=== PATIENT | male | born 1940 | race Caucasian/White ===

== ENCOUNTER → 2024-01-06 07:42 | Outpatient (REF) | payer MEDICARE, OTHER, SELFPAY ==
[2024-01-06 09:37] LABS: % Basophils 0.4 % (0-2); % Eosinophils 1.5 % (0-6); % Lymphocytes 47.4 % (20.5-51.1); % Monocytes 5.8 % (1.7-9.3); % Neutrophils 44.9 % (42.2-75.2); Absolute Eosinophils 0.1 10^3/uL (0-0.7); Absolute Lymphocytes 2.5 10^3/uL (1.2-3.4); Absolute Monocytes 0.3 10^3/uL (0.1-0.6); Absolute Neutrophils 2.3 10^3/uL (1.4-6.5); Hematocrit 33.9 % (39.0-52.0); Hemoglobin 11.2 g/dL (13.0-18.0); Mean Corpuscular Hgb 34.6 pg (27.0-31.0); Mean Corpuscular Volume 104.6 fL (80.0-94.0); Mean Platelet Volume 9.8 fL (7.4-10.4); Nucleated Red Blood Cells % 0 % (-); Platelet Count 278 10^3/uL (130-400); Red Blood Cell Count 3.24 10^6/uL (4.70-6.10); Red Cell Dist. Width 12.7 % (11.5-14.5); White Blood Cell Count 5.2 10^3/uL (4.8-10.8)
[2024-01-06 10:37] LABS: Glycohemoglobin (HgbA1c) 7.1 % (4.0-5.6)
[2024-01-06 10:39] LABS: Microalbumin, Random Urine 1.4 mg/dl (0.6-1.7); Microalbumin/creatinine Ratio 13.6 mg/g
[2024-01-06 10:41] LABS: ALT (SGPT) 24 U/L (0-50); AST (SGOT) 24 U/L (17-59); Albumin 4.4 g/dl (3.5-5.0); Alkaline Phosphatase 73 U/L (38-126); Blood Urea Nitrogen 15 mg/dl (9-20); Calcium 9.6 mg/dl (8.4-10.2); Carbon Dioxide 27 mmol/L (22-30); Chloride 104 mmol/L (98-107); Glucose 132 mg/dl (70-99); HDL Cholesterol 54 mg/dl; LDL Cholesterol, Calculated 66 mg/dl; Potassium 4.5 mmol/L (3.5-5.1); Sodium 143 mmol/L (135-145); Total Bilirubin 0.3 mg/dl (0.2-1.3); Total Cholesterol 147 mg/dl (50-199); Total Protein 6.8 g/dl (6.3-8.2); Triglyceride 135 mg/dl (10-149); Very Low Density Lipoprotein 27 mg/dl (0-30); eGFR > 60.00
[2024-01-06 12:03] LABS: PSA, Total - Screen 1.15 ng/ml (0.0-4.0); TSH 5.01 uIU/ml (0.47-4.68)
[2024-01-06 12:07] LABS: Ferritin 46.3 ng/ml (17.9-464.0)
== END ==
LOC: HWLAB 07:42
PROVIDERS: ATTENDING PHYSICIAN Family Medicine; OTHER PHYSICIAN Internal Medicine; OTHER PHYSICIAN Internal Medicine Endocrinology, Diabetes & Metabolism; REFERRING PHYSICIAN Internal Medicine
DX: E11.69 Type 2 diabetes mellitus with other specified complication (principal); E78.5 Hyperlipidemia, unspecified; D47.2 Monoclonal gammopathy; I42.2 Other hypertrophic cardiomyopathy; G25.0 Essential tremor; K21.9 Gastro-esophageal reflux disease without esophagitis; Z79.899 Other long term (current) drug therapy; E61.1 Iron deficiency; Z12.5 Encounter for screening for malignant neoplasm of prostate
CPT/HCPCS: 36415; 80053; 80061; 82043; 82570; 82728; 83036; 84443; 85025; G0103

== ENCOUNTER 2024-01-12 14:45 | Inpatient (IN) | payer MEDICARE, OTHER, SELFPAY ==
[2024-01-12 12:04] VITALS: BP 107/72
--- NOTE | 2024-01-12 12:15 | ED.GENMED ---
ED Provider Triage
<RESHMA Avina - Last Filed: 01/12/24 12:17>
-
Patient seen by provider in Triage?: Seen in Triage
Attestation: A medical screening examination has been initiated by a qualified medical provider. Based on the assessment performed at this time, it has been determined that an emergent medical condition may exist and the patient has been informed
that further medical evaluation and possible additional diagnostic testing may be needed.
HPI: 82-year-old male presents to the ER for evaluation of lightheadedness. Patient was in the shower when he started to feel very weak and lightheaded. HE checked his heart rate after and it was in the 80s. but his sugar was elevated to 200 .
Patient feels a little better now lightheadedness has resolved he does feel mild headache. He denies any chest pain shortness of breath. Denies any recent illness fever chills
GENERAL: Alert , in no apparent distress
EYE: No visual abnormalities.
NECK: Trachea midline
ENT: No visible abnormalities.
LUNGS: No acute respiratory distress
NEUROLOGICAL: Alert and oriented
SKIN: Skin intact. No visible changes.
MUSCULOSKELETAL: Moving extremities normally
PSYCH: Normal and appropriate interaction.
This is a medical evaluation conducted in person to initiate diagnostic evaluation and provide initial therapeutics. Please see further documentation by the treating clinician.
History of Present Illness
<RESHMA Avina - Last Filed: 01/12/24 12:17>
General
Chief Complaint: Fainting Sensation
Time Seen by Provider: 01/12/24 13:12
<Gabo Berry MD - Last Filed: 01/12/24 15:03>
History of Present Illness
History of Present Illness:
Patient presents to the emergency department with an episode of lightheadedness while he is in the shower this morning around 8:30 AM. He notes that he felt like fainting and felt a mild headache. He checked his heart rate on his watch and noted
to be elevated around 90. Patient notes that he has a history of hypertrophic nonobstructive cardiomyopathy. Denies any chest pain. Denies any leg swelling.
Past History
<RESHMA Avina - Last Filed: 01/12/24 12:17>
Past History
ED Past Medical History: Other (Nonobstructive hypertrophic CM, hyperlipidemia, GERD)
ED Past Surgical History: None
Social History
Tobacco: Non-smoker
Alcohol: None
Drug: None
Personal:
Living: with family
Phy Exam
<Gabo Berry MD - Last Filed: 01/12/24 15:03>
Physical Exam
Physical Exam:
GENERAL APPEARANCE: NAD, well developed/ well nourished
EYES lids/conjunctiva normal
EARS/NOSE/THROAT Mucous membranes moist, uvula midline without oral pharyngeal erythema, exudate or swelling
HEAD/NECK normocephalic atraumatic, neck is supple.
RESPIRATORY respiratory effort normal, speaks in full sentences, no accessory muscle use. Lungs clear to auscultation without rhonchi, wheezes, rales
CARDIAC irregular rhythm, rates 90s to 100s. No lower extremity edema
ABDOMINAL Soft, ND/NT.
MUSCLES/EXTREMITIES No abnormal range of motion, no swelling.
SKIN Warm, pink and dry. No rashes
NEUROLOGICAL Speech is clear and appropriate. Normal level of consciousness. 5/5 strength in all extremities.
PSYCH Normal mood and affect. Judgement/competence is appropriate
Course
<RESHMA Avina - Last Filed: 01/12/24 12:17>
Orders/Labs/Results
Orders:
Orders
01/12/24 11:57
Electrocardiogram (*1) Urgent
Reason for Study: Syncope
EKG- Treatment ONCE
01/12/24 12:21
Complete Blood Count/With Diff Urgent
Comprehensive Metabolic Panel Urgent
Magnesium Urgent
Comment: @PREVIOUSLY [id number]
TSH Reflex To Free T4 Urgent
Comment: ADD ON
Troponin I Urgent
01/12/24 13:35
Heparin 4,000 units IV NOW STA
Notify MD As Directed
Notify physician if: Call provider for further orders if PTT is greater than or equal to 200 per heparin
infusion protocol.
Nursing to Place Non Medication Order As Directed
Physician Order: PTT 6 hours after initial start of Heparin infusion
Above order entered?: Yes
01/12/24 13:41
CR Chest - 2 Views Urgent
Comment:
Reason For Exam: new afib
01/12/24 13:45
Heparin 63243 Units/250 ml 25,000 units in 250 ml IV PER PROTOCOL
Weight to be used for heparin protocol in kilograms (kg):: 69.1
Protocol:: Cardiac Tx/Acute Coronary
PTT Goal Range to be used:: PTT 73 to 111 seconds
Order type:: Initial
INITIAL Infusion Dose (UNITS/KG/hr) & then follow protocol:: 12 units/kg/hr
Infusion Dose in UNITS/hr & then follow protocol (UNITS/hr):: 850
INFUSION RATE in mL/hr & then follow protocol (mL/hr):: 8.5
PTT less than or equal to 64 seconds:: Increase rate by 200 units/hr (+ 2 mL/hr)
PTT 64.1 to 72.9 seconds:: Increase rate by 100 units/hr (+ 1 mL/hr)
PTT 73 to 111 seconds:: Target Range. No change in rate.
PTT 111.1 to 130.9 seconds:: Decrease rate by 100 units/hr (- 1 mL/hr)
PTT 131 to 199.9 seconds:: HOLD for 1 hr. Then decrease rate by 200 units/hr (- 2 mL/hr)
PTT greater than or equal to 200 seconds:: HOLD for 2 hrs & Notify Provider. Then decrease by 200 units/hr (-
2 mL/hr)
Lab follow-up:: Each change, PTT q6h until 2 consecutive are therapeutic. Then PTT
daily.
01/12/24 13:58
Add On- LAB Urgent
Tests Added?: tsh with free t4 reflex
01/12/24 14:00
Heparin 23731 Units/250 ml 25,000 units in 250 ml .ROUTE .STK-MED
01/12/24 14:05
PTT Urgent
Comment: Obtain baseline before beginning heparin infusion if not already collected
Prothrombin Time Urgent
01/12/24 14:15
CARDIOLOGY CONSULT Routine
Consulting Provider: Gio Conte
Was physician already notified: Yes
Reason for consult: new onset afib
01/12/24 14:17
Old Records Request [Obtain Records] As Directed
Dates of Information to be Released: [id number]
Type of Information Requested: Entire Record
If Other, list type of info requested: 2d echo
Obtain Records from: dr ivis [facility] [phone] include
01/12/24 14:18
Admit/Transfer Patient As Directed
Co-Sign Provider:
Level of Care: Inpatient admission
Assign to:: Telemetry
Physician / Group: elizabeth melendez
Diagnosis: new onset afib
Reason for Telemetry: Arrhythmia
Date to Stop Telemetry: 01/15/24
Time to Stop Telemetry: 11:00
Reason for Hospitalization: new onset afib
Expected length of stay greater than two midnights?: Yes
ELOS- Estimated Length of Stay in days: 3
I certify the patient meets the requirements for IP care: Yes
Code Status As Directed
Resuscitation Status: Full Code
01/12/24 14:20
PRN Pain Medication Management As Directed
May give lesser potent ordered pain med per pt: Yes
preference::
Protocol:: Medication orders for pain may be administered in a
manner that supports deferring to patient preference
when the pt is:
- Requesting an ordered lesser potent pain medication.
Least to most potent pain medications are defined
as: acetaminophen < NSAID < tramadol < opioids
(morphine, oxycodone, hydromorphone).
- Requesting a lesser dose of the same medication IF
ORDERED.
- Requesting a less intrusive route of administration
if both routes are prescribed by the provider (PO <
IV).
01/12/24 14:21
Acetaminophen [Tylenol] 650 mg PO NOW STA
01/12/24 20:10
PTT Urgent
01/15/24 11:00
DC Protocol for Telemetry ONCE
Abnormal Lab Results
01/12/24
12:21
RBC 3.54 L 10^6/uL
(4.70-6.10)
Hgb 12.5 L g/dL
(13.0-18.0)
Hct 36.7 L %
(39.0-52.0)
MCV 103.7 H fL
(80.0-94.0)
MCH 35.3 H pg
(27.0-31.0)
BUN 21 H mg/dl
(9-20)
Glucose 154 H mg/dl
(70-99)
01/12/24 12:21
01/12/24 12:21
Vital Signs
Initial and Last Documented VS:
Initial Vital Signs
Temp Pulse Resp BP Pulse Ox
98.9 F 84 20 107/72 97
01/12/24 12:04 01/12/24 12:04 01/12/24 12:04 01/12/24 12:04 01/12/24 12:04
Last Documented Vital Signs
Temp Pulse Resp BP Pulse Ox
98.9 F 108 15 132/103 99
01/12/24 12:04 01/12/24 14:30 01/12/24 14:30 01/12/24 14:24 01/12/24 14:13
<Gabo Berry MD - Last Filed: 01/12/24 15:03>
Orders/Labs/Results
Orders:
Orders
01/12/24 11:57
Electrocardiogram (*1) Urgent
Reason for Study: Syncope
EKG- Treatment ONCE
01/12/24 12:21
Complete Blood Count/With Diff Urgent
Comprehensive Metabolic Panel Urgent
Magnesium Urgent
Comment: @PREVIOUSLY [id number]
TSH Reflex To Free T4 Urgent
Comment: ADD ON
Troponin I Urgent
01/12/24 13:35
Heparin 4,000 units IV NOW STA
Notify MD As Directed
Notify physician if: Call provider for further orders if PTT is greater than or equal to 200 per heparin
infusion protocol.
Nursing to Place Non Medication Order As Directed
Physician Order: PTT 6 hours after initial start of Heparin infusion
Above order entered?: Yes
01/12/24 13:41
CR Chest - 2 Views Urgent
Comment:
Reason For Exam: new afib
01/12/24 13:45
Heparin 99713 Units/250 ml 25,000 units in 250 ml IV PER PROTOCOL
Weight to be used for heparin protocol in kilograms (kg):: 69.1
Protocol:: Cardiac Tx/Acute Coronary
PTT Goal Range to be used:: PTT 73 to 111 seconds
Order type:: Initial
INITIAL Infusion Dose (UNITS/KG/hr) & then follow protocol:: 12 units/kg/hr
Infusion Dose in UNITS/hr & then follow protocol (UNITS/hr):: 850
INFUSION RATE in mL/hr & then follow protocol (mL/hr):: 8.5
PTT less than or equal to 64 seconds:: Increase rate by 200 units/hr (+ 2 mL/hr)
PTT 64.1 to 72.9 seconds:: Increase rate by 100 units/hr (+ 1 mL/hr)
PTT 73 to 111 seconds:: Target Range. No change in rate.
PTT 111.1 to 130.9 seconds:: Decrease rate by 100 units/hr (- 1 mL/hr)
PTT 131 to 199.9 seconds:: HOLD for 1 hr. Then decrease rate by 200 units/hr (- 2 mL/hr)
PTT greater than or equal to 200 seconds:: HOLD for 2 hrs & Notify Provider. Then decrease by 200 units/hr (-
2 mL/hr)
Lab follow-up:: Each change, PTT q6h until 2 consecutive are therapeutic. Then PTT
daily.
01/12/24 13:58
Add On- LAB Urgent
Tests Added?: tsh with free t4 reflex
01/12/24 14:00
Heparin 28232 Units/250 ml 25,000 units in 250 ml .ROUTE .STK-MED
01/12/24 14:05
PTT Urgent
Comment: Obtain baseline before beginning heparin infusion if not already collected
Prothrombin Time Urgent
01/12/24 14:15
CARDIOLOGY CONSULT Routine
Consulting Provider: Gio Conte
Was physician already notified: Yes
Reason for consult: new onset afib
01/12/24 14:17
Old Records Request [Obtain Records] As Directed
Dates of Information to be Released: [id number]
Type of Information Requested: Entire Record
If Other, list type of info requested: 2d echo
Obtain Records from: dr [facility]is [facility] [phone] include
01/12/24 14:18
Admit/Transfer Patient As Directed
Co-Sign Provider:
Level of Care: Inpatient admission
Assign to:: Telemetry
Physician / Group: elizabeth melendez
Diagnosis: new onset afib
Reason for Telemetry: Arrhythmia
Date to Stop Telemetry: 01/15/24
Time to Stop Telemetry: 11:00
Reason for Hospitalization: new onset afib
Expected length of stay greater than two midnights?: Yes
ELOS- Estimated Length of Stay in days: 3
I certify the patient meets the requirements for IP care: Yes
Code Status As Directed
Resuscitation Status: Full Code
01/12/24 14:20
PRN Pain Medication Management As Directed
May give lesser potent ordered pain med per pt: Yes
preference::
Protocol:: Medication orders for pain may be administered in a
manner that supports deferring to patient preference
when the pt is:
- Requesting an ordered lesser potent pain medication.
Least to most potent pain medications are defined
as: acetaminophen < NSAID < tramadol < opioids
(morphine, oxycodone, hydromorphone).
- Requesting a lesser dose of the same medication IF
ORDERED.
- Requesting a less intrusive route of administration
if both routes are prescribed by the provider (PO <
IV).
01/12/24 14:21
Acetaminophen [Tylenol] 650 mg PO NOW STA
01/12/24 20:10
PTT Urgent
01/15/24 11:00
DC Protocol for Telemetry ONCE
Abnormal Lab Results
01/12/24
12:21
RBC 3.54 L 10^6/uL
(4.70-6.10)
Hgb 12.5 L g/dL
(13.0-18.0)
Hct 36.7 L %
(39.0-52.0)
MCV 103.7 H fL
(80.0-94.0)
MCH 35.3 H pg
(27.0-31.0)
BUN 21 H mg/dl
(9-20)
Glucose 154 H mg/dl
(70-99)
01/12/24 12:21
01/12/24 12:21
Vital Signs
Initial and Last Documented VS:
Initial Vital Signs
Temp Pulse Resp BP Pulse Ox
98.9 F 84 20 107/72 97
01/12/24 12:04 01/12/24 12:04 01/12/24 12:04 01/12/24 12:04 01/12/24 12:04
Last Documented Vital Signs
Temp Pulse Resp BP Pulse Ox
98.9 F 108 15 132/103 99
01/12/24 12:04 01/12/24 14:30 01/12/24 14:30 01/12/24 14:24 01/12/24 14:13
<Gabo Berry MD - Last Filed: 01/12/24 15:03>
*Critical Care Note
Total Time (30-74mins, 75-104mins- exclusive of procedures): Not Applicable
ED Attending Note
<RESHMA Avina - Last Filed: 01/12/24 12:17>
-
Portions of this chart may have been created with voice recognition software.� Occasional wrong word or��sound alike� substitutions may have occurred due to the inherent limitations of voice recognition software.
<Gabo Berry MD - Last Filed: 01/12/24 15:03>
ED Attending Note
ED Attending Note:
Patient presents the emergency department with near syncope found to be in new onset atrial fibrillation. Rate is controlled. Given his history of cardiomyopathy as well as age, will admit for echo and monitoring and cardiology consult
Discharge Plan
Departure
Patient Disposition: Admit
Date of Disposition: 01/12/24
Time of Disposition: 13:45
Admit to: Telemetry
Presentation/result/management discussed w/ accepting MD/DO: Hospitalist
Discharge Problem:
Atrial fibrillation/flutter, Near syncope
Interventions
Interventions:
*Risk Screen - Suicide Last Done: 01/12/24 12:10
*Neglect/Abuse Screening Last Done: 01/12/24 12:10
ED- Fall Risk Assessment Last Done: 01/12/24 13:13
*ED COVID-19 Vaccine History Last Done: 01/12/24 12:58
ED- Cardiac Assessment Last Done: 01/12/24 13:13
ED- Neurological Assessment Last Done: 01/12/24 13:13
[2024-01-12 12:32] LABS: % Basophils 0.3 % (0-2); % Eosinophils 0.8 % (0-6); % Immature Granulocytes 0.3 % (0-0.5); % Lymphocytes 25.5 % (20.5-51.1); % Neutrophils 67.1 % (42.2-75.2); Absolute Eosinophils 0.1 10^3/uL (0-0.7); Absolute Lymphocytes 1.5 10^3/uL (1.2-3.4); Absolute Monocytes 0.4 10^3/uL (0.1-0.6); Hematocrit 36.7 % (39.0-52.0); Hemoglobin 12.5 g/dL (13.0-18.0); Mean Corp Hgb Conc. 34.1 g/dL (33.0-37.0); Mean Corpuscular Hgb 35.3 pg (27.0-31.0); Mean Corpuscular Volume 103.7 fL (80.0-94.0); Mean Platelet Volume 9.9 fL (7.4-10.4); Nucleated Red Blood Cells % 0 % (-); Platelet Count 309 10^3/uL (130-400); Red Blood Cell Count 3.54 10^6/uL (4.70-6.10); Red Cell Dist. Width 12.5 % (11.5-14.5)
[2024-01-12 12:52] LABS: Troponin I < 0.012 ng/ml
[2024-01-12 12:53] LABS: ALT (SGPT) 27 U/L (0-50); AST (SGOT) 27 U/L (17-59); Albumin 4.8 g/dl (3.5-5.0); Alkaline Phosphatase 76 U/L (38-126); Blood Urea Nitrogen 21 mg/dl (9-20); Calcium 9.6 mg/dl (8.4-10.2); Carbon Dioxide 26 mmol/L (22-30); Chloride 102 mmol/L (98-107); Glucose 154 mg/dl (70-99); Potassium 5.1 mmol/L (3.5-5.1); Sodium 142 mmol/L (135-145); Total Bilirubin 0.5 mg/dl (0.2-1.3); Total Protein 7.6 g/dl (6.3-8.2); eGFR > 60.00
[2024-01-12 13:08] VITALS: BP 139/77
--- NOTE | 2024-01-12 13:58 | HPS.HSE ---
Family Physician
-
Family Physician: Dony Meyers
Chief Complaint
-
Lightheadedness
History of Present Illness
83-year-old male complaining of lightheadedness with entire body feeling weak while he was in the shower. He reports checking his heart rate states it was in the 80s he also checked his blood sugar which was elevated to 200. He reports a mild
headache across the frontal sinus area. He denies fever, chills, sore throat, chest pain, palpitations, shortness with, cough, abdominal pain, nausea, vomiting, diarrhea, urinary symptoms. In the ER he was found to be in new onset A-fib with a
controlled rate 76-102. He reports he had lab work last week with an A1c of 7.1. He does have past medical history of hypertrophic nonobstructive cardiomyopathy, HLD, GERD, iron deficiency, pancreatic cysts, DM 2-diet controlled
Medical History
Past Medical History
Past Medical History: Reports Other
Additional Past Medical History:
hypertrophic nonobstructive cardiomyopathy
HLD
GERD
iron deficiency
pancreatic cysts
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
DM 2-diet controlled
Past Surgical History: Reports Other
Additional Past Surgical History:
Dental surgery
Hernia repair
Cardiac cath
Multiple endoscopic
Left wrist surgery
Tonsillectomy
Whipple surgery due to stone in duct 2018
Social History
Tobacco: Non-smoker
Alcohol: None
Drug: None
Personal:
Living: With Family ( Alissa)
Employment: Retired
Family History
Family History: Other (Father pancreatic CA, mother complications diverticulitis/sepsis)
Allergies / Home Medications
Allergies reflects when Allergies were last updated in [employer].
Home Medications with original date entered in [facility]
Allergy/Medication List:
Allergies
Allergy/AdvReac Type Severity Reaction Status Date / Time
No Known Allergies Allergy Verified 01/12/24 12:14
Home Medications
Lactobac no.2-Bifidobac no.1-S. thermo 112.5 billion cell capsule (Visbiome) 1 cap PO DAILY 01/12/24
diphenhydramine 25 mg-acetaminophen 500 mg tablet (Tylenol PM Extra Strength) 1 tab PO HSPRN PRN sleep 01/12/24
folic acid 1 mg tablet 1 mg PO DAILY 01/12/24
metoprolol tartrate 25 mg tablet 25 mg PO BID 01/12/24
omeprazole 40 mg capsule,delayed release 40 mg PO DAILY 01/12/24
simvastatin 10 mg tablet (Zocor) 10 mg PO HS 01/12/24
Review of Systems
-
History Source: Patient and Family ( Alissa at bedside)
A 12 point ROS was completed and negative except as noted: Yes
Constitutional: Denies Fever, Fatigue or Chills
EENT: Denies Sore Throat, Mouth Pain or Runny Nose
Respiratory: Denies Cough or Trouble Breathing
Cardiac: Denies Chest Pain, Diaphoresis, Palpitations or Syncope
Abdomen/GI: Denies Abdominal Pain, Nausea, Vomiting, Diarrhea, Constipated, Bloody Stools or Black Stools
: Denies Dysuria, Frequency, Flank Pain, Incontinence, Difficulty Voiding or Urgency
Musculoskeletal: Denies Joint Pain, Joint Swelling or Edema
Skin: Denies Itching or Rash
Neurological: Reports Dizzy and Headache (Frontal)
Endocrine: Reports No Symptoms
Hematologic/Lymphatic: Reports No Symptoms
Psych: Reports Calm
Physical Exam
Vital Signs
Vital Signs
Temp Pulse Resp BP Pulse Ox
98.9 F 102 19 139/77 100
01/12/24 12:04 01/12/24 13:09 01/12/24 13:09 01/12/24 13:08 01/12/24 13:09
Physical Exam
General: Comfortable and Conversant; No Fever or Chills
HEENT: NormoCephalic, Anicteric, Moist mucous membranes, PERRLA, [place] Conjunctivae and No Ptosis
Respiratory: Clear; No Wheezes, Rales or Rhonchi
Cardiac: S1/S2 and Irregular Rhythm (A-fib HR 90 bpm on monitor); No Murmur, Rub, Gallop or Peripheral Edema
Breast: Deferred by me
GI: Soft, Non Tender, Non Distended, Normal Bowel Sounds and No Hepatosplenomegaly
Rectal: Deferred by Provider
Genito-urinary: Deferred by me
Musculoskeletal: No Clubbing, No Cyanosis and No Edema
Skin: Warm, Dry and Rash
Neuro: AO x 3, No Motor Deficits, Nonfocal/grossly intact and No Sensory Deficits; No Slurred Speech, Facial Droop or Tremors
Psych: Calm
Laboratory Results
-
01/12/24 12:21
01/12/24 12:21
Laboratory Results
Total Bilirubin 0.5 mg/dl (0.2-1.3) 01/12/24 12:21
AST 27 U/L (17-59) 01/12/24 12:21
ALT 27 U/L (0-50) 01/12/24 12:21
Alkaline Phosphatase 76 U/L (38-126) 01/12/24 12:21
Troponin I < 0.012 ng/ml 01/12/24 12:21
Impression/Plan
-
Impression/plan:
Admit to telemetry
#New onset atrial fibrillation
-Rate controlled 76�102 bpm
-IV heparin drip started
-Consult CBC cardiology
-Check TSH with free T4 reflex
-2D echo
-Continue metoprolol tartrate 25 mg twice daily
-Check CXR
#Hx hypertrophic nonobstructive cardiomyopathy
Patient follows Dr. Henry Sanders at [place]
-Request old records from above physician [phone]
#DM2�diet controlled
Patient reports blood work last week 7.1%
# HLD
Check lipid profile
-Continue Zocor 10 mg at bedtime
#GERD
-Continue omeprazole 40 mg daily
#Iron deficiency
-Hgb 12.5
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
pancreatic cysts
DVT prophylaxis
IV heparin drip
Full code per patient with Alissa at bedside
[2024-01-12] MEDS: HEPARIN 4000 UNITS IV (14:06)
[2024-01-12] MEDS: HEPARIN 25000 UNITS/250 ML IV (14:09)
--- NOTE | 2024-01-12 14:16 | W.PN.UPDATE ---
Addendum entered and electronically signed by Cathryn Tomlin MD 01/12/24 17:11:
Eliquis started. NPO past midnight for OSWALD Cardioversion tomorrow.
Addendum entered and electronically signed by Cathryn Tomlin MD 01/12/24 14:23:
History of Type 2 Diabetes, recent a1c of 7.1. ISS.
Original Note:
Update Note
Progress Note Update
This is an addendum to the H&P written by Thu Perez on 01/12/2024.� Patient seen and examined independently with ORDER PICKER/ASSEMBLER.
83-year-old male past medical history of hypertrophic cardiomyopathy, hyperlipidemia, GERD presenting for weakness and lightheadedness while in the shower today.
Patient arrives with new onset atrial fibrillation with heart rate in the 80s.� Hemodynamically stable.� Labs normal.� Troponin negative.� Heparin drip started.� Check TSH, check echocardiogram.� Cardiology consulted.
[2024-01-12 14:24] VITALS: BP 132/103
[2024-01-12 14:29] LABS: INR 1.04; PT 13.6 Sec (11.4-14.6)
[2024-01-12 14:30] LABS: APTT 26.4 Sec (23.4-35.0)
[2024-01-12] MEDS: TYLENOL 650 MG PO (14:33)
[2024-01-12 14:41] LABS: Magnesium 2.1 mg/dl (1.6-2.3)
--- NOTE | 2024-01-12 14:51 | EDRN ---
Authorization to obtain MEd RECORDS release obtained. alumnae secretary contacting Dr Snaders office for ordered records
[2024-01-12 15:13] LABS: TSH Reflex To Free T4 2.71 uIU/ml (0.47-4.68)
--- NOTE | 2024-01-12 16:06 | CON.CAR ---
Addendum entered and electronically signed by Gio Conte MD 01/12/24 17:12:
I saw and examined the patient.
The LOGGING CONTRACTOR's note was reviewed and I agree with the note.
Comment: We reviewed all aspects of AFib: risk factor modification, stroke risk reduction, symptom control via rate vs rhythm control. For HCM we only use AMIODARONE or ablation for rhythm control. Will start with single cardioversion guided by OSWALD
and adding Eliquis and AFib risk factor modification. Reviewed risks/benefits of anticoagulation and signs/symptoms of GI bleed and risk of ICH. Given his initial symptoms (dizzy w/o syncope) I suggested to him he have a 30 day monitor like
[employer] Loop Event Recorder with auto trigger of MCOT. He will follow with his teletypesetter in [place] (Henry Sanders MD).
Original Note:
Consultation
Consultation Request
Date/Time Consultation Requested: 01/12/24 1415
Date/Time Consultation Performed: 01/12/24 1530
Requesting Provider: Thu Perez NP
Performing Provider: Twila JUSTICE for Dr. Conte
Reason for Consultation: AFIB
Medical History
-
Chief Complaint: Light-headedness
History of Present Illness:
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
he was in the shower today around 830 AM and felt light-headed and weak. His helped him to the bed. He noted his HR was in 90 range, where it is usually in 50's-60's. He called his PCP, who recommended ER evaluation. In ER, he is seen to be in
AFIB with fairly controlled rates and he is feeling okay. No CP or palpitations. He is place on a heparin drip.
Past Medical History
Past Medical History: Hypercholesterolemia, NIDDM and Other (as above)
Social History
Tobacco: Non-Smoker
Alcohol: None
Personal:
Living: With Family
Family History
Family History: CAD (mom had stents, not young)
Allergies / Home Medications
Allergy/AdvReac Type Severity Reaction Status Date / Time
No Known Allergies Allergy Verified 01/12/24 12:14
�Medication �Instructions �Recorded �Confirmed �Type
Lactobac no.2-Bifidobac no.1-S. 1 cap PO DAILY probiotic 01/12/24 01/12/24 History
thermo 112.5 billion cell capsule
(Visbiome)
diphenhydramine 25 1 tab PO HSPRN PRN sleep 01/12/24 01/12/24 History
mg-acetaminophen 500 mg tablet
(Tylenol PM Extra Strength)
folic acid 1 mg tablet 1 mg PO DAILY Supplement 01/12/24 01/12/24 History
metoprolol tartrate 25 mg tablet 25 mg PO BID Blood Pressure 01/12/24 01/12/24 History
omeprazole 40 mg capsule,delayed 40 mg PO DAILY Gastrointestinal 01/12/24 01/12/24 History
release Issue
simvastatin 10 mg tablet (Zocor) 10 mg PO HS High Cholesterol 01/12/24 01/12/24 History
Review of Systems
-
History Source: Patient
All other systems: Negative unless noted
Neurological: Dizzy (light-headed)
Physical Exam
Vital Signs
Temp Pulse Resp BP Pulse Ox
98.9 F 108 15 132/103 99
01/12/24 12:04 01/12/24 14:30 01/12/24 14:30 01/12/24 14:24 01/12/24 14:13
Lab Results
01/12/24 12:21
01/12/24 12:21
Troponin I < 0.012 ng/ml 01/12/24 12:21
Physical Exam
General: Well Developed, Well Nourished and No Apparent Distress
HEENT: Normocephalic and Anicteric
Respiratory: Clear and Non Labored Respirations
Cardiac: Irregular Rhythm
Musculoskeletal: No Edema
Skin: Warm and Dry
Neuro: AO x 3
Psych: Calm
Impression / Plan
-
Atrial fibrillation, new diagnosis- type and onset are unknown:
-rate is fairly well-controlled on metoprolol 25 mg PO BID - follow telemetry
-[id number] score is 3 for HTN and age- heparin drip started- continue for now- this requires intensive monitoring, will adjust to Kivo- CM to cuevas
-OSWALD/CV in AM
-TSH WNL
Apical variant cardiomyopathy:
-obtain TTE after cardioversion
DM2:
-lifestyle management, not on meds
Dyslipidemia:
-on statin
Data Reviewed
-
EKG: Tracing Personally Visualized and interpreted (AFIB, ST and T wave abnormality)
Radiology: Report Reviewed by me (No active cardiopulmonary disease.)
Medical Tests (Nuc Med, Echo etc): Other (echo ordered)
Labs: Labs Reviewed by me
[2024-01-12 16:15] VITALS: BP 126/87; BMI 23.7
[2024-01-12 16:24] LABS: Glucose - Point of Care 108 mg/dl (70-99)
[2024-01-12 17:25] VITALS: BMI 23.7
--- NOTE | 2024-01-12 17:26 | PTCARENOTE ---
Received patient from ED via stretcher. AAOx3, ambulated to bed without assistance. Assessed and oriented to room. at bedside. Call mccauley in close reach.
[2024-01-12 19:45] VITALS: BP 130/78
[2024-01-12] MEDS: LOPRESSOR 25 MG PO (20:29)
[2024-01-12] MEDS: ELIQUIS 5 MG PO (20:29)
[2024-01-12] MEDS: LIPITOR 10 MG PO (21:37)
[2024-01-12 23:29] VITALS: BP 105/72
[2024-01-13] VITALS (7 sets, daily range): BP systolic 91–113; BP diastolic 49–62; PULSE 69; O2SAT 97
[2024-01-13 05:42] LABS: Glucose - Point of Care 122 mg/dl (70-99)
[2024-01-13] MEDS: NOVOLOG FLEXPEN-LOW RESISTANCE SC (05:44)
[2024-01-13 08:08] LABS: % Basophils 0.3 % (0-2); % Eosinophils 1.1 % (0-6); % Immature Granulocytes 0.3 % (0-0.5); % Lymphocytes 40.8 % (20.5-51.1); % Monocytes 6.4 % (1.7-9.3); % Neutrophils 51.1 % (42.2-75.2); Absolute Eosinophils 0.1 10^3/uL (0-0.7); Absolute Lymphocytes 2.5 10^3/uL (1.2-3.4); Absolute Monocytes 0.4 10^3/uL (0.1-0.6); Absolute Neutrophils 3.1 10^3/uL (1.4-6.5); Hematocrit 36.5 % (39.0-52.0); Hemoglobin 12.2 g/dL (13.0-18.0); Mean Corp Hgb Conc. 33.4 g/dL (33.0-37.0); Mean Corpuscular Hgb 34.7 pg (27.0-31.0); Mean Corpuscular Volume 103.7 fL (80.0-94.0); Mean Platelet Volume 10.2 fL (7.4-10.4); Nucleated Red Blood Cells % 0 % (-); Platelet Count 296 10^3/uL (130-400); Red Blood Cell Count 3.52 10^6/uL (4.70-6.10); Red Cell Dist. Width 12.5 % (11.5-14.5); White Blood Cell Count 6.1 10^3/uL (4.8-10.8)
[2024-01-13] MEDS: LOPRESSOR 25 MG PO (08:10)
[2024-01-13] MEDS: ELIQUIS 5 MG PO (08:11)
[2024-01-13] MEDS: VISBIOME 1 CAP PO (08:11)
[2024-01-13] MEDS: FLUSH (NSS) 1 FLUSH IV (08:11)
[2024-01-13] MEDS: PROTONIX 40 MG PO (08:11)
[2024-01-13] MEDS: FOLVITE 1 MG PO (08:11)
[2024-01-13 08:47] LABS: ALT (SGPT) 24 U/L (0-50); AST (SGOT) 24 U/L (17-59); Albumin 4.1 g/dl (3.5-5.0); Alkaline Phosphatase 69 U/L (38-126); Blood Urea Nitrogen 21 mg/dl (9-20); Calcium 9.6 mg/dl (8.4-10.2); Carbon Dioxide 24 mmol/L (22-30); Chloride 106 mmol/L (98-107); Estimated Creatinine Clearance 50 ml/min; Glucose 143 mg/dl (70-99); HDL Cholesterol 51 mg/dl; LDL Cholesterol, Calculated 69 mg/dl; Potassium 4.7 mmol/L (3.5-5.1); Sodium 142 mmol/L (135-145); Total Bilirubin 0.6 mg/dl (0.2-1.3); Total Cholesterol 146 mg/dl (50-199); Total Protein 6.6 g/dl (6.3-8.2); Triglyceride 132 mg/dl (10-149); Very Low Density Lipoprotein 26 mg/dl (0-30); eGFR > 60.00
--- NOTE | 2024-01-13 09:40 | W.PN.CD ---
Today's Communication / Plan
-
ok for discharge home today to follow up with typical cardiology
continue eliquis and bb
Impression / Plan
-
Atrial fibrillation, new diagnosis- type and onset are unknown:
-rate is fairly well-controlled on metoprolol 25 mg PO BID - follow telemetry
-[id number] score is 3 for HTN and age
-Succesful ISMAEL/DCCV
-he can afford Eliquis, so will continue on d/c
-TSH WNL
Apical variant cardiomyopathy:
-seen on ismael
-followed by Dr Sanders
-given presyncope with would pursue MCOT with primary cardiology
DM2:
-lifestyle management, not on meds
Dyslipidemia:
-on statin
Subjective;
he is without complaint
Physical Exam
Vital Signs/Labs
Vital Signs
Temp Pulse Resp BP Pulse Ox
97.9 F 94 16 110/61 100
01/13/24 07:45 01/13/24 08:10 01/13/24 07:45 01/13/24 08:10 01/13/24 07:45
01/12/24 01/13/24 01/14/24
06:59 06:59 06:59
Actual Weight 64.495 kg
01/13/24 07:44
01/13/24 07:44
PT 13.6 Sec (11.4-14.6) 01/12/24 14:05
INR 1.04 01/12/24 14:05
APTT Cancelled 01/12/24 20:10
Magnesium Cancelled 01/12/24 14:05
Triglycerides 132 mg/dl (10-149) 01/13/24 07:44
LDL Cholesterol, Calc 69 mg/dl 01/13/24 07:44
VLDL Cholesterol, Calc 26 mg/dl (0-30) 01/13/24 07:44
HDL Cholesterol 51 mg/dl 01/13/24 07:44
LAB Results
01/12/24
12:21
Troponin I < 0.012
Physical Exam
Constitutional: No acute distress
Cardiovascular: Rhythm & rate is regular, Pedal edema is absent, JVD pressure is normal, Systolic murmur absent and Diastolic murmur absent
Respiratory: Respiratory effort normal, Lungs clear to auscul., Wheeze Absent, Crackles Absent and Rhonchi Absent
Neuro/Psych: AO x 3
Data Reviewed
-
Date of Service: January 13, 2024
Medical Decision Making: Review of Case with other Provider (Dr Cochran HCM variant seen on ismael, single shock to restore nsr; Dr Ramos ok for discharge)
--- NOTE | 2024-01-13 09:41 | W.PN.HOSP.TC ---
Addendum entered and electronically signed by Brandt Ramos MD 01/13/24 13:09:
I saw and evaluated the patient. I reviewed the resident�s note and agree with findings and plan as documented in the resident�s note.
Currently without acute complaints.
Gen: NAD, AAOx3.
Eyes: EOMI, PERRLA, no scleral icterus.
Neck: supple.
CV: RRR, +S1/S2, no m/r/g.
Resp: CTAB, no rales, wheezes, or rhonchi.
Abd: +BS, soft, NT, ND
Skin: No rashes.
Neuro: CN 2-12 intact, non-focal.
Psych: Normal mood and affect.
Symptomatic atrial fibrillation with rapid ventricular response:
-Status post OSWALD cardioversion to sinus rhythm today
-Eliquis started
-Case discussed with Dr. Nava and the patient is medically cleared for discharge at this time.
updated at bedside
Total time spent on d/c = 31 min. This included today's physical exam, progress note, review of laboratory and diagnostic data, preparation of discharge documents and prescriptions, and discussions about the pt's hospital course and discharge plan
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
Original Note:
Today's Communication/Plan
-
OSWALD cardioversion
Plan discharge
Assessment / Plan
Assessment / Plan
IMPRESSION
Patient is an 83 year old male with past medical history of apical variant hypertrophic cardiomyopathy,dyslipidemia,diet controlled type2 diabetes mellitus,history of whipple procedure for pancreatic duct stone who presented with new onset atrial
fibrillation following an episode of lightheadedness.Heart rate in 80-90 which usually for him is 50-60's.Admitted for SOWALD Cardioversion and monitoring.
ASSESSMENT AND PLAN
NEW ONSET ATRIAL FIBRILLATION
Patient had an episode of lightheadedness on
At that time he had a heart rate of 80 which is higher for him compared to baseline heart rate of 50-60
EKG done in ED Showed:ATRIAL FIBRILLATION,ST and T WAVE ABNORMALITY, CONSIDER ANTEROLATERAL ISCHEMIA
TSH---within normal limits
TROP I___within normal limits
[id number] score 3---candidate for anticoagulation
Cardiology consult appreciated:2D echo-Continue metoprolol tartrate 25 mg twice daily-Check CXR,IV heparin drip started
ECHOCARDIOGRAPHY
TELEMETRY
PT evaluation
OTHER PROBLEMS
#Hx hypertrophic nonobstructive cardiomyopathy
#DM2�diet controlled. MoQ3r--4.1 done last week
# HLD-continue home dose ofstatin
#GERD-Continue omeprazole 40 mg daily
#Iron deficiency-Hgb 12.5
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
pancreatic cysts
CXR FINDINGS:
Frontal and lateral radiographs of the chest were obtained.
The cardiac silhouette and pulmonary vasculature are radiographically within normal limits.
There are no acute mediastinal abnormalities.
There are no acute pleural or parenchymal abnormalities
OSWALD CARDIOVERSION
A OSWALD (reported separately) was performed prior to the cardioversion. No left atrial or left atrial appendage thrombus was seen. After the OSWALD probe was removed, a 200 joule biphasic synchronized shock was delivered to the patient under MAC
anesthesia. Sinus rhythm was successfully restored. The patient recovered uneventfully from MAC anesthesia. There were no immediate post-procedure complications. The patient left the lab in good condition.
Full code
DVT prophylaxis
IV heparin drip
Anticipated Discharge: Within 24 hours
Subjective/Interval History
-
Date of Service: January 13, 2024
No active issues, patient underwent OSWALD cardioversion for new onset atrial fibrillation
Objective Data
-
Labs:
Laboratory Results
01/13/24
07:44
WBC 6.1
Hgb 12.2 L
Hct 36.5 L
Plt Count 296
Sodium 142
Potassium 4.7
Chloride 106
Carbon Dioxide 24
BUN 21 H
Creatinine 1.0
Glucose 143 H
Calcium 9.6
Total Bilirubin 0.6
AST 24
ALT 24
Alkaline Phosphatase 69
Vital Signs:
Vital Signs
Temp Pulse Resp BP Pulse Ox
97.9 F 94 16 110/61 100
01/13/24 07:45 01/13/24 08:10 01/13/24 07:45 01/13/24 08:10 01/13/24 07:45
I&O
01/12/24 01/13/24 01/14/24
06:59 06:59 06:59
Intake Total 480 / 480
Balance 480 / 480
Review of Systems
-
All other systems: Reviewed and negative
Physical Exam
-
General: Well Developed, Well Nourished, No Apparent Distress and Comfortable
HEENT: Moist Mucous Membranes and PERRLA
Respiratory: Clear to Auscultation
Cardiac: Regular Rhythm and S1/S2
GI: Soft, Nontender and Normal Bowel Sounds
Genito-urinary: No Costovertebral Tender
Musculoskeletal: No Clubbing, No Cyanosis and No Edema
Skin: Warm and Dry
Neuro: Awake, Alert and Oriented
Hematologic / Lymphatic: No Lymphadenopathy
Psych: Calm
--- NOTE | 2024-01-13 10:18 | ITS.CL.CARDI ---
[facility] - Cardioversion
Cardioversion
Procedure Report:
Procedure: OSWALD-guided electrical cardioversion
Pre-operative diagnosis: Persistent atrial fibrillation
Post-operative diagnosis: Persistent atrial fibrillation status post DC cardioversion to sinus rhythm
Anesthesia: MAC
Attending Physician: Gualberto Robbins MD
Procedure Description: The patient was brought to the electrophysiology laboratory in the fasting state. Informed consent was obtained from the patient prior to the start of the procedure. Adherence to anticoagulation was confirmed. Electrodes were
placed on the patient and connected to an external defibrillator. Monitoring of blood pressure, ECG tracings, and pulse oximetry was initiated. The pads were applied to the patient in the anterior and posterior positions. The patient was sedated by
the anesthesiologist. A OSWALD (reported separately) was performed prior to the cardioversion. No left atrial or left atrial appendage thrombus was seen. After the OSWALD probe was removed, a 200 joule biphasic synchronized shock was delivered to the
patient under MAC anesthesia. Sinus rhythm was successfully restored. The patient recovered uneventfully from MAC anesthesia. There were no immediate post-procedure complications. The patient left the lab in good condition. The attending physician
was present throughout the entire procedure.
Impression: Successful OSWALD-guided direct current cardioversion with cheondoism of sinus rhythm after one 200 joule biphasic synchronized shock.
--- NOTE | 2024-01-13 11:01 | PTCARENOTE ---
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 awake and alert, no distress, or complaints- vitals noted. at bedside. call mccauley in reach, patient aware to call for any needs. plan of care on going.
[2024-01-13 11:34] LABS: Glucose - Point of Care 171 mg/dl (70-99)
--- NOTE | 2024-01-13 12:00 | CM ---
KOMAL met with Kiran after he returned to the unit s/p cardioversion. He lives with his in a [place] community; no steps to enter, main floor has bathroom, bedroom, kitchen, dining area.
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 No SDOH concerns. Denies needs at discharge.
Plan: Discharge to home with no needs.
--- NOTE | 2024-01-13 13:06 | W.DCSUMMARY ---
Addendum entered and electronically signed by Brandt Ramos MD 01/13/24 14:30:
Read, reviewed, and agree. See same day progress note for additional details.
Original Note:
Discharge Summary
Discharge Data
Date of Admission: 01/12/24
Date of Discharge: 01/13/24
-
Pending Results: No
Hospital Course
Discharging Physician : Dr. Brandt Ramos, Dr. Ag Jerome
Disposition : Home
Primary care physician : Dr. Dony Meyers
Principal Discharge diagnosis : Symptomatic atrial fibrillation with a rapid ventricular response
Chronic Discharge diagnosis :
#Hx hypertrophic nonobstructive cardiomyopathy
#DM2�diet controlled. ZuI2v--9.1 done last week
# HLD-atorvastatin
#GERD-Continue omeprazole 40 mg daily
#Iron deficiency-Hgb 12.5
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
pancreatic cysts
Hospital Course :
Patient is an 83-year-old male who had an episode of lightheadedness on January 12, 2024 while he was in shower. His helped him to the bed and at that time he had a heart rate of 80 which is higher for him compared to baseline heart rate of
50-60. He was brought to emergency, EKG done that showed atrial fibrillation that was new in onset for the patient. Troponin was done which was within normal limits and TSH within normal limits, chest x-ray showed no acute cardiopulmonary changes,
had cardiology on board who suggested that considering patient's age and new onset of atrial fibrillation he should undergo transesophageal echo with cardioversion .A OSWALD (reported separately) was performed prior to the cardioversion. No left atrial
or left atrial appendage thrombus was seen. After the OSWALD probe was removed, a 200 joule biphasic synchronized shock was delivered to the patient under MAC anesthesia. Sinus rhythm was successfully restored. The patient recovered uneventfully from
MAC anesthesia. There were no immediate post-procedure complications.
Important imaging findings :
CXR FINDINGS: 01/11
Frontal and lateral radiographs of the chest were obtained.
The cardiac silhouette and pulmonary vasculature are radiographically within normal limits.
There are no acute mediastinal abnormalities.
There are no acute pleural or parenchymal abnormalities.
No active cardiopulmonary disease.
OSWALD FINDINGS 01/12
Left Ventricle
Increased left ventricular wall thickness involving the mid and apical segments
consistent with apical left ventricular hypertrophy. The ejection fraction is
estimated at 55-60%.
Right Ventricle
Normal right ventricular size and function.
Left Atrium
Dilated left atrium.
Right Atrium
Normal right atrium.
Procedure findings :
Successful OSWALD-guided direct current cardioversion with religion of sinus rhythm after one 200 joule biphasic synchronized shock(01/12)
Discharge Plan
-
Patient Disposition: Home (Routine Discharge)
Discharge Diagnosis/Procedures: Symptomatic atrial fibrillation with a rapid ventricular response
Condition: Good
Diet: 2 Gram Sodium and Diabetic, Carb Controlled
Activity: No restrictions
Driving Restrictions: As prior to admission
Bathing Restrictions: None
Blood Work: CBC and BMP in 1 week, prescription from PCP
Referrals:
Dony Meyers DO [Family Provider] - in less than 1 week
Prescriptions:
New
Eliquis 5 mg Tablet
5 mg PO BID Qty: 60 0RF
atorvastatin 10 mg Tablet
10 mg PO HS Qty: 30 0RF
Continued
omeprazole 40 mg Capsule,Delayed Release(Dr/Ec)
40 mg PO DAILY
folic acid 1 mg Tablet
1 mg PO DAILY
diphenhydramine-acetaminophen [Tylenol PM Extra Strength] 25-500 mg Tablet
1 tab PO HSPRN PRN (Reason: sleep)
metoprolol tartrate 25 mg Tablet
25 mg PO BID
Visbiome 112.5 billion cell Capsule
1 cap PO DAILY
Discontinued
simvastatin [Zocor] 10 mg Tablet
10 mg PO HS
Discharge Orders:
Discharge Patient (As Directed); Ordered 01/13/24
Ordered By: Brandt Ramos
Discharge Date and Time
Print Language: PASHTO
[2024-01-13] MEDS: NOVOLOG FLEXPEN-LOW RESISTANCE 1 UNITS SC (13:13)
--- NOTE | 2024-01-13 13:28 | PTOTSP ---
PATIENT ABLE TO MOBILIZE INDEPENDENTLY ON LEVEL SURFACES WELL ELEVATIONS WITHOUT A DEVICE. PATIENT WITH NO COMPLAINTS OF LIGHTHEADEDNESS OR DIZZINESS WITH HIGHEST HEART RATE NOTED TO BE 83BPM. PATIENT REQUIRING NO FURTHER ACUTE CARE SKILLED
P.T. WILL DISCHARGE FORM THERAPY SERVICES.
== END 2024-01-13 17:03 | disposition home or self-care (01) | DRG 309 ==
LOC: 4 EAST ACU 14:45
PROVIDERS: Clinical Nurse Specialist Family Health; Emergency Medicine; Internal Medicine Cardiovascular Disease; ADMITTING PHYSICIAN Hospitalist; ATTENDING PHYSICIAN Internal Medicine; CONSULT PHYSICIAN Internal Medicine Cardiovascular Disease; EMERGENCY PHYSICIAN Emergency Medicine; FAMILY PHYSICIAN Family Medicine
PROC: 5A2204Z Restoration of Cardiac Rhythm, Single (ICD-10-PCS; 2024-01-13)
PROC: B24BZZ4 Ultrasonography of Heart with Aorta, Transesophageal (ICD-10-PCS; 2024-01-13)
DX: I48.19 Other persistent atrial fibrillation (principal); K86.2 Cyst of pancreas; R42 Dizziness and giddiness; I42.2 Other hypertrophic cardiomyopathy; I48.92 Unspecified atrial flutter; R53.1 Weakness; K21.9 Gastro-esophageal reflux disease without esophagitis; E78.00 Pure hypercholesterolemia, unspecified; R55 Syncope and collapse; R51.9 Headache, unspecified; E11.9 Type 2 diabetes mellitus without complications; E61.1 Iron deficiency; Z80.0 Family history of malignant neoplasm of digestive organs; Z82.49 Family history of ischemic heart disease and other diseases of the circulatory system; Z90.411 Acquired partial absence of pancreas
CPT/HCPCS: 71046; 80053; 80061; 82962; 83735; 84443; 84484; 85025; 85610; 85730; 93005; 93306; 93312; 93320; 93325; 96374; 97162; 99285

== ENCOUNTER → 2024-01-17 09:04 | Outpatient (REF) | payer MEDICARE, OTHER, SELFPAY | LOC: HWRAD 09:04 | PROVIDERS: ATTENDING PHYSICIAN Family Medicine | DX: R29.890 Loss of height (principal); M81.0 Age-related osteoporosis without current pathological fracture | CPT/HCPCS: 77080 ==

== ENCOUNTER 2024-03-21 11:06 | Emergency (ER) | payer MEDICARE, OTHER, SELFPAY ==
[2024-03-21 11:32] VITALS: BP 136/77
[2024-03-21 13:04] VITALS: BP 128/74
--- NOTE | 2024-03-21 13:43 | ED.GENMED ---
Addendum entered and electronically signed by Bozena Morris PA-C 03/24/24 14:31:
prelim culture viridans strep; on keflex, no treatment change required
Original Note:
History of Present Illness
General
Chief Complaint: Skin Problem
Source: patient
Exam Limitations: none
Time Seen by Provider: 03/21/24 13:17
Nursing documentation reviewed up to this point in time: agreed with
History of Present Illness
History of Present Illness:
83-year-old male presents to the ER complaining of left thumb injury and swelling. He reports he dropped a squeezy from his shower onto his left thumb several days ago and sustained a small laceration. He has been using a Band-Aid Neosporin has
not looked out until today and he noticed a blister to the area. He complains of mild soreness but denies any fevers. His tetanus is UTD.
Past History
Past History
ED Past Medical History: Other (Nonobstructive hypertrophic CM, hyperlipidemia, GERD)
ED Past Surgical History: None
Social History
Tobacco: Non-smoker
Alcohol: None
Drug: None
Personal:
Living: with family
Review of Systems
Review of Systems
Allergies reviewed?: Yes
All Other Systems: ROS reviewed and negative except as documented in HPI and ROS
Constitutional: Reports no symptoms; Denies fever, fatigue or chills
Musculoskeletal: Reports other (left thumb blister )
Skin: Reports no symptoms
Psychiatric: Reports no symptoms
Phy Exam
General Physical Exam
General Presentation: no apparent distress
General age: appears stated age
General Skin: warm and dry
General Habitus: normal
General Mental: alert
General Hydration: appears well hydrated
Neurological Exam
Neurological Exam: alert and oriented x3
Musculoskeletal Exam
Musculoskeletal Exam: other (lue with strong pulses + blister to dorsal/lateral thumb filled with small amt of purulent drainage very minimal redness surrounding the blister however no obvious swelling to the thumb flexion extension; no lymphangitis)
Skin Exam
Skin Exam: normal color and warm/dry
Psychiatric Exam
Psychiatric Exam: normal mood/affect
Course
Orders/Labs/Results
Orders:
Orders
03/21/24 13:42
Wound Culture [Wound/Abscess/Other Culture] Urgent
JAYLON Source: Finger
Specimen Description: Left
Cephalexin Monohydrate [Keflex] 500 mg PO NOW STA
Vital Signs
Initial and Last Documented VS:
Initial Vital Signs
Temp Pulse Resp BP Pulse Ox
98.5 F 77 18 136/77 99
03/21/24 11:32 03/21/24 11:32 03/21/24 11:32 03/21/24 11:32 03/21/24 11:32
Last Documented Vital Signs
Temp Pulse Resp BP Pulse Ox
98.5 F 69 18 128/74 99
03/21/24 11:32 03/21/24 13:04 03/21/24 13:04 03/21/24 13:04 03/21/24 13:04
Procedures
Other
Indication for procedure:: infected blister
Procedure completed by: myself
Additional Procedure:
Betadine was used to prep and clean blister using an 11 blade scalpel small incision was made over the site of purulent drainage with small amount of pus in return. cx sent.
MDM/Problems Addressed
Differential Diagnosis Includes:
Not limited to infected wound/cellulitis
MDM/Problems Addressed:
Patient with blister to left thumb with small amount of purulent drainage. there is only very minimal redness to the thumb with no actual swelling to the actual thumb. I was able to drain the blister with small amt of pus and blood in return
.this was sent for culture. Will DC with Keflex with warm soaks with close outpatient follow-up with family doctor for wound check
*Critical Care Note
Total Time (30-74mins, 75-104mins- exclusive of procedures): Not Applicable
ED Attending Note
-
Portions of this chart may have been created with voice recognition software.� Occasional wrong word or��sound alike� substitutions may have occurred due to the inherent limitations of voice recognition software.
Discharge Plan
Departure
Patient Disposition: Home (Routine Discharge)
Date of Disposition: 03/21/24
Time of Disposition: 13:50
Patient with high blood pressure during this ER visit?: Yes
Covid-19: Not Applicable
Discharge Problem:
Finger, blister, infected
Instructions: Wound Care (DC)
Prescriptions:
New
cephalexin 500 mg capsule
500 mg PO Q6H Qty: 28 0RF
No Action
omeprazole 40 mg Capsule,Delayed Release(Dr/Ec)
40 mg PO DAILY
folic acid 1 mg Tablet
1 mg PO DAILY
diphenhydramine-acetaminophen [Tylenol PM Extra Strength] 25-500 mg Tablet
1 tab PO HSPRN PRN (Reason: sleep)
metoprolol tartrate 25 mg Tablet
25 mg PO BID
Visbiome 112.5 billion cell Capsule
1 cap PO DAILY
Eliquis 5 mg Tablet
5 mg PO BID Qty: 60 0RF
atorvastatin 10 mg Tablet
10 mg PO HS Qty: 30 0RF
Referrals:
Dony Meyers DO [Family Provider] -
Activity Restrictions/Additional Instructions:
As discussed antibiotics as directed every 6 hours for the next 7 days. This medication was sent to the [facility] on [facility] in [place](24-hour [facility])
Take antibiotic as directed.
warm soaks several times a day .
Follow-up with your family doctor in the next 2 days for wound check. Return if any worsening of symptoms of increased pain swelling redness retreating fever chills
Interventions
Interventions:
*Risk Screen - Suicide Last Done: 03/21/24 12:58
*General Assessment Last Done: 03/21/24 11:35
*Neglect/Abuse Screening Last Done: 03/21/24 12:58
*ED COVID-19 Vaccine History Last Done: 03/21/24 11:35
ED-Skin Assessment Last Done: 03/21/24 12:58
Discharge Date and Time
Print Language: AMHARIC
[2024-03-21] MEDS: KEFLEX 500 MG PO (13:47)
== END 2024-03-21 14:00 | disposition home or self-care (01) ==
LOC: EMR 11:06
PROVIDERS: EMERGENCY PHYSICIAN Emergency Medicine; FAMILY PHYSICIAN Family Medicine
DX: S60.322A Blister (nonthermal) of left thumb, initial encounter (principal); X58.XXXA Exposure to other specified factors, initial encounter; I42.2 Other hypertrophic cardiomyopathy; E78.00 Pure hypercholesterolemia, unspecified; K21.9 Gastro-esophageal reflux disease without esophagitis
CPT/HCPCS: 99282; 26010; 87070; 87205

== ENCOUNTER → 2024-04-20 08:05 | Outpatient (REF) | payer MEDICARE, OTHER, SELFPAY ==
[2024-04-20 10:03] LABS: ALT (SGPT) 27 U/L (0-50); AST (SGOT) 24 U/L (17-59); Albumin 4.3 g/dl (3.5-5.0); Alkaline Phosphatase 84 U/L (38-126); Blood Urea Nitrogen 16 mg/dl (9-20); Carbon Dioxide 27 mmol/L (22-30); Chloride 101 mmol/L (98-107); Glucose 154 mg/dl (70-99); HDL Cholesterol 52 mg/dl; LDL Cholesterol, Calculated 62 mg/dl; Sodium 138 mmol/L (135-145); Total Bilirubin 0.4 mg/dl (0.2-1.3); Total Cholesterol 140 mg/dl (50-199); Triglyceride 131 mg/dl (10-149); Very Low Density Lipoprotein 26 mg/dl (0-30); eGFR > 60.00
[2024-04-20 10:08] LABS: Potassium 4.3 mmol/L (3.5-5.1)
[2024-04-20 10:32] LABS: Glycohemoglobin (HgbA1c) 7.5 % (4.0-5.6)
[2024-04-20 10:35] LABS: Microalbumin, Random Urine 1.8 mg/dl (0.6-1.7); Microalbumin/creatinine Ratio 12.5 mg/g
== END ==
LOC: HWLAB 08:05
PROVIDERS: ATTENDING PHYSICIAN Family Medicine; OTHER PHYSICIAN Internal Medicine; OTHER PHYSICIAN Internal Medicine Endocrinology, Diabetes & Metabolism; REFERRING PHYSICIAN Internal Medicine
DX: I48.0 Paroxysmal atrial fibrillation (principal); D47.2 Monoclonal gammopathy; E11.69 Type 2 diabetes mellitus with other specified complication; Z79.01 Long term (current) use of anticoagulants; M85.9 Disorder of bone density and structure, unspecified; D53.9 Nutritional anemia, unspecified; E78.5 Hyperlipidemia, unspecified; I42.2 Other hypertrophic cardiomyopathy; K21.9 Gastro-esophageal reflux disease without esophagitis
CPT/HCPCS: 36415; 80053; 80061; 82043; 82570; 83036

== ENCOUNTER → 2024-09-06 09:00 | Outpatient (REF) | payer MEDICARE, OTHER, SELFPAY ==
[2024-09-06 12:28] LABS: ALT (SGPT) 23 U/L (0-50); AST (SGOT) 22 U/L (17-59); Albumin 4.2 g/dl (3.5-5.0); Alkaline Phosphatase 76 U/L (38-126); Blood Urea Nitrogen 14 mg/dl (9-20); Calcium 9.3 mg/dl (8.4-10.2); Carbon Dioxide 26 mmol/L (22-30); Chloride 107 mmol/L (98-107); Glucose 163 mg/dl (70-99); Iron 99 ug/dl (49-181); Potassium 4.4 mmol/L (3.5-5.1); Sodium 143 mmol/L (135-145); Total Bilirubin 0.5 mg/dl (0.2-1.3); eGFR > 60.00
[2024-09-06 12:31] LABS: % Basophils 0.4 % (0-2); % Eosinophils 1.1 % (0-6); % Immature Granulocytes 0.2 % (0-0.5); % Lymphocytes 40.7 % (20.5-51.1); % Monocytes 5.9 % (1.7-9.3); % Neutrophils 51.7 % (42.2-75.2); Absolute Eosinophils 0.1 10^3/uL (0-0.7); Absolute Lymphocytes 1.9 10^3/uL (1.2-3.4); Absolute Monocytes 0.3 10^3/uL (0.1-0.6); Absolute Neutrophils 2.4 10^3/uL (1.4-6.5); Hematocrit 31.7 % (39.0-52.0); Hemoglobin 10.7 g/dL (13.0-18.0); Mean Corp Hgb Conc. 33.8 g/dL (33.0-37.0); Mean Corpuscular Volume 103.6 fL (80.0-94.0); Mean Platelet Volume 10.1 fL (7.4-10.4); Nucleated Red Blood Cells % 0 % (-); Platelet Count 280 10^3/uL (130-400); Red Blood Cell Count 3.06 10^6/uL (4.70-6.10); Red Cell Dist. Width 12.7 % (11.5-14.5); White Blood Cell Count 4.6 10^3/uL (4.8-10.8)
[2024-09-06 12:37] LABS: Percent Saturation 29 % (20-50); Total Iron Binding Capacity 332 ug/dl (261-462)
[2024-09-06 15:57] LABS: Ferritin 40.9 ng/ml (17.9-464.0)
[2024-09-08 01:24] LABS: Beta-2-Microglobulin 2.9 mg/L (<=3.0)
[2024-09-10 01:13] LABS: Albumin 3.76 g/dL (3.75-5.01); Alpha 1 Globulin 0.23 g/dL (0.19-0.46); Alpha 2 Globulin 0.92 g/dL (0.48-1.05); Free Lambda Light Chains,Quant 6.65 mg/L (5.71-26.30); IgA 896 mg/dL (68-408); IgG 359 mg/dL (768-1632); IgM 18 mg/dL (35-263); Immunofixation Electrophoresis IFE Done; Monoclonal Protein 1.09 g/dL (<=0.00)
== END ==
LOC: HWLAB 09:00
PROVIDERS: ATTENDING PHYSICIAN Internal Medicine Hematology & Oncology; FAMILY PHYSICIAN Family Medicine; REFERRING PHYSICIAN Internal Medicine
DX: D50.0 Iron deficiency anemia secondary to blood loss (chronic) (principal); D47.2 Monoclonal gammopathy
CPT/HCPCS: 36415; 80053; 82232; 82728; 82784; 83521; 83540; 83550; 84155; 84165; 85025; 86334

== ENCOUNTER → 2024-12-17 09:08 | Outpatient (REF) | payer MEDICARE, OTHER, SELFPAY ==
[2024-12-17 11:51] LABS: ALT (SGPT) 26 U/L (0-50); AST (SGOT) 22 U/L (17-59); Albumin 4.4 g/dl (3.5-5.0); Alkaline Phosphatase 93 U/L (38-126); Blood Urea Nitrogen 17 mg/dl (9-20); Calcium 9.5 mg/dl (8.4-10.2); Carbon Dioxide 25 mmol/L (22-30); Chloride 104 mmol/L (98-107); Glucose 168 mg/dl (70-99); HDL Cholesterol 58 mg/dl; LDL Cholesterol, Calculated 53 mg/dl; Potassium 4.7 mmol/L (3.5-5.1); Sodium 138 mmol/L (135-145); Total Protein 7.4 g/dl (6.3-8.2); Very Low Density Lipoprotein 35 mg/dl (0-30); eGFR > 60.00
[2024-12-17 12:08] LABS: Microalbumin, Random Urine 0.9 mg/dl (0.6-1.7)
[2024-12-17 12:15] LABS: TSH 3.98 uIU/ml (0.47-4.68)
[2024-12-17 12:21] LABS: Glycohemoglobin (HgbA1c) 7.2 % (4.0-5.6)
[2024-12-17 13:16] LABS: Microalb - Urine Creatinine 47.300 mg/dl
== END ==
LOC: HWLAB 09:08
PROVIDERS: ATTENDING PHYSICIAN Internal Medicine Endocrinology, Diabetes & Metabolism; FAMILY PHYSICIAN Family Medicine
DX: I48.0 Paroxysmal atrial fibrillation (principal); D47.2 Monoclonal gammopathy; E11.69 Type 2 diabetes mellitus with other specified complication; Z79.01 Long term (current) use of anticoagulants; M85.9 Disorder of bone density and structure, unspecified; D53.9 Nutritional anemia, unspecified; E78.5 Hyperlipidemia, unspecified; I42.2 Other hypertrophic cardiomyopathy; K21.9 Gastro-esophageal reflux disease without esophagitis; E11.65 Type 2 diabetes mellitus with hyperglycemia
CPT/HCPCS: 36415; 80053; 80061; 82043; 82570; 83036; 84439; 84443

== ENCOUNTER → 2025-01-21 08:11 | Outpatient (REF) | payer MEDICARE, OTHER, SELFPAY ==
[2025-01-21 09:42] LABS: Hematocrit 31.3 % (39.0-52.0); Hemoglobin 9.9 g/dL (13.0-18.0); Mean Corp Hgb Conc. 31.6 g/dL (33.0-37.0); Mean Corpuscular Volume 106.8 fL (80.0-94.0); Nucleated Red Blood Cells % 0 % (-); Platelet Count 318 10^3/uL (130-400); Red Cell Dist. Width 12.7 % (11.5-14.5)
[2025-01-21 09:46] LABS: APTT 33.4 Sec (23.4-35.0)
[2025-01-21 09:51] LABS: INR 1.16; PT 15.1 Sec (11.4-14.6)
[2025-01-21 10:03] LABS: Blood Urea Nitrogen 16 mg/dl (9-20); Calcium 9.2 mg/dl (8.4-10.2); Carbon Dioxide 24 mmol/L (22-30); Chloride 107 mmol/L (98-107); Glucose 155 mg/dl (70-99); Potassium 4.3 mmol/L (3.5-5.1); Sodium 137 mmol/L (135-145); eGFR > 60.00
== END ==
LOC: HWLAB 08:11
PROVIDERS: ATTENDING PHYSICIAN Internal Medicine; FAMILY PHYSICIAN Family Medicine
DX: I48.0 Paroxysmal atrial fibrillation (principal); Z01.818 Encounter for other preprocedural examination
CPT/HCPCS: 36415; 80048; 85025; 85610; 85730